=== PATIENT | male | born 1965 | race Asian ===

== ENCOUNTER 2022-02-27 17:21 | Emergency (ER) | payer BC ==
[2022-02-27 17:28] VITALS: TEMP 97.4; BMI 26.9
[2022-02-27] MEDS ORDERED: SODIUM CHLORIDE 1,000 ML IV STA (18:30)
[2022-02-27 19:07] LABS: BASO % 0.6 % (0-2.0); EOS % 0.1 % (0-4.5); HEMATOCRIT 42.4 % (35.4-49); HEMOGLOBIN 14.7 GM/dL (11.7-16.9); LYMPH % 6.3 % (8-40); MCH 28.1 pg (25.7-33.7); MCHC 34.8 g/dl (32.0-35.9); MEAN CELL VOLUME 80.7 fl (80-96); MEAN PLT VOLUME 9.2 fl (7.5-11.1); MONO % 4.8 % (3.8-10.2); NEUT % 88.2 % (42.8-82.8); PLATELET COUNT 206 10^3/uL (134-434); RBC 5.25 M/mm3 (4.00-5.60); WHITE BLOOD COUNT 12.2 K/mm3 (4.0-10.0)
[2022-02-27 19:17] VITALS: BP 129/86; PULSE 94; RESP 18
[2022-02-27 19:28] LABS: CALCIUM 9.8 mg/dL (8.5-10.1)
[2022-02-27 19:29] LABS: ALBUMIN 4.3 g/dl (3.4-5.0)
[2022-02-27 19:32] LABS: CREATININE 1.7 mg/dL (0.55-1.3)
[2022-02-27 19:33] LABS: BILIRUBIN,TOTAL 0.6 mg/dL (0.2-1)
[2022-02-27 19:34] LABS: TOT PROT 8.6 g/dl (6.4-8.2)
[2022-02-27 20:13] LABS: INR 1.15 (0.83-1.09); PROTHROMBIN TIME (PATIENT) 13.3 SEC (9.7-13.0)
[2022-02-27] MEDS ORDERED: SODIUM CHLORIDE 0.9% 500 ML INFUS.BAG IV ONE (20:19)
[2022-02-27 22:07] LABS: BLOOD UREA NITROGEN 23.2 mg/dL (7-18); CALCIUM 8.8 mg/dL (8.5-10.1)
[2022-02-27 22:08] LABS: ALBUMIN 3.4 g/dl (3.4-5.0)
[2022-02-27 22:11] LABS: CREATININE 1.4 mg/dL (0.55-1.3)
[2022-02-27 22:12] LABS: BILIRUBIN,TOTAL 0.4 mg/dL (0.2-1)
== END 2022-02-27 22:38 | disposition left against medical advice (07) ==
LOC: JER 17:21
PROC: 3E0337Z Introduction of Electrolytic and Water Balance Substance into Peripheral Vein, Percutaneous Approach (ICD-10-PCS; principal; 2022-02-27)
DX: R07.9 Chest pain, unspecified (principal); R42 Dizziness and giddiness; R25.2 Cramp and spasm
CPT/HCPCS: 36415; 71046-TC-FY; 71275-TC; 74176-TC; 76700-TC; 76705-TC; 80053; 83690; 84484; 85025; 85379; 85610; 93005; 93010; 99285-25; Q9967